=== PATIENT | male | born 1970 | race American Indian/Alaskan Native ===

== ENCOUNTER 2018-05-14 17:14 | Emergency (ER) | payer OTHER ==
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
[2018-05-14] MEDS ORDERED: MOTRIN PO ONE (21:07)
[2018-05-14 22:26] VITALS: BP 141/67
== END 2018-05-14 22:25 | disposition home or self-care (01) ==
LOC: ED 17:14
DX: M54.2 Cervicalgia (principal); M79.651 Pain in right thigh; V89.2XXA Person injured in unspecified motor-vehicle accident, traffic, initial encounter; Y93.89 Activity, other specified; Y99.8 Other external cause status; Y92.89 Other specified places as the place of occurrence of the external cause
CPT/HCPCS: 99282